=== PATIENT | female | born 1985 | race Caucasian/White ===

== ENCOUNTER 2024-08-02 14:22 | Emergency (ER) | payer OTHER, SELFPAY ==
[2024-08-02 14:25] VITALS: BP 147/102
[2024-08-02 14:48] LABS: % Basophils 0.5 % (0-2); % Eosinophils 1.6 % (0-6); % Immature Granulocytes 0.4 % (0-0.5); % Lymphocytes 22.8 % (20.5-51.1); % Monocytes 6.6 % (1.7-9.3); % Neutrophils 68.1 % (42.2-75.2); Absolute Basophils 0.1 10^3/uL (0-0.2); Absolute Eosinophils 0.2 10^3/uL (0-0.7); Absolute Lymphocytes 2.6 10^3/uL (1.2-3.4); Absolute Monocytes 0.8 10^3/uL (0.1-0.6); Absolute Neutrophils 7.7 10^3/uL (1.4-6.5); Hematocrit 42.3 % (37.0-47.0); Hemoglobin 14.8 g/dL (12.0-16.0); Mean Corpuscular Volume 94.2 fL (81.0-99.0); Mean Platelet Volume 10.3 fL (7.4-10.4); Nucleated Red Blood Cells % 0 %; Platelet Count 301 10^3/uL (130-400); Red Blood Cell Count 4.49 10^6/uL (4.20-5.40); Red Cell Dist. Width 11.9 % (11.5-14.5); White Blood Cell Count 11.3 10^3/uL (4.8-10.8)
[2024-08-02 15:11] LABS: ALT (SGPT) 51 U/L (0-35); AST (SGOT) 28 U/L (14-36); Alkaline Phosphatase 67 U/L (38-126); Blood Urea Nitrogen 10 mg/dl (7-17); Carbon Dioxide 25 mmol/L (22-30); Chloride 108 mmol/L (98-107); Glucose 88 mg/dl (70-99); Magnesium 2.3 mg/dl (1.6-2.3); Potassium 4.1 mmol/L (3.5-5.1); Sodium 140 mmol/L (135-145); Total Bilirubin 0.8 mg/dl (0.2-1.3); Total Protein 7.9 g/dl (6.3-8.2); eGFR > 60.00
[2024-08-02 15:43] LABS: TSH Reflex To Free T4 0.43 uIU/ml (0.47-4.68)
[2024-08-02 16:12] LABS: Free T4 1.75 ng/dl (0.78-2.19)
--- NOTE | 2024-08-02 17:26 | ED.GENMED ---
History of Present Illness
General
Chief Complaint: Fatigue
Source: patient
Time Seen by Provider: 08/02/24 16:41
History of Present Illness
History of Present Illness:
38-year-old female presenting to the emergency department for evaluation after she states she feels as if her emotions have been very labile over the last couple of weeks, unsure if her thyroid is abnormal. She states that she has been under a lot
of stress recently, yesterday she quit her job and states that she has been hearing voices which she states are telling her negative things about herself. Patient states that she is a single mother, caring for her son, no SI or HI. Patient has a
history of substance abuse in the past but notes she has been sober from any hard drugs for the last 7 years but still notes she smokes marijuana, recently started using a vape pen and is unsure as to if this is may be related. Denies any fevers or
infectious symptoms. Family history was noted for schizophrenia and grandmother and an aunt.
Past History
Past History
ED Past Medical History: Asthma, Hypothyroidism, Psychiatric (ADHD) and Other (Insomnia, on Clonazapam q hs)
ED Past Surgical History: Gynecological (D&C)
Social History
Tobacco: Former smoker
Alcohol: Occasional
Drug: Former user and Marijuana
Personal: Single
Living: with family
Employment: Employed
Family History
Family History: Hypertension
Review of Systems
Review of Systems
All Other Systems: ROS reviewed and negative except as documented in HPI and ROS
Phy Exam
Physical Exam
Physical Exam:
GENERAL: Alert , in no apparent distress, tearful
EYE: conjunctiva clear
Head: Normocephalic atraumatic
NECK: Supple,
ENT: mmm.
LUNGS: no acute respiratory distress
NEUROLOGICAL: Alert and oriented
SKIN: Warm and dry, skin intact.
MUSCULOSKELETAL: well perfused.
PSYCH: Normal and appropriate interaction.
Scores
Heart Failure Risk
Heart Failure Risk Score: Not Applicable
Heart Score for Chest Pain Patients
STEMI patient?: Not applicable
Withdrawal Assessment of Alcohol
Withdrawal Assessment Completed?: Not applicable
Course
Orders/Labs/Results
Orders:
Orders
08/02/24 14:39
Complete Blood Count/With Diff Urgent
Comprehensive Metabolic Panel Urgent
Free T4 Urgent
Magnesium Urgent
TSH Reflex To Free T4 Urgent
08/02/24 17:04
Crisis Consult Urgent
Reason for Consult: outpatient resources
Abnormal Lab Results
08/02/24
14:39
WBC 11.3 H 10^3/uL
(4.8-10.8)
MCH 33.0 H pg
(27.0-31.0)
Absolute Neuts (auto) 7.7 H 10^3/uL
(1.4-6.5)
Absolute Monos (auto) 0.8 H 10^3/uL
(0.1-0.6)
Chloride 108 H mmol/L
(98-107)
ALT 51 H U/L
(0-35)
TSH (Reflex) 0.43 L uIU/ml
(0.47-4.68)
08/02/24 14:39
08/02/24 14:39
Vital Signs
Initial and Last Documented VS:
Initial Vital Signs
Temp Pulse Resp BP Pulse Ox
98.0 F 86 20 147/102 99
08/02/24 14:25 08/02/24 14:25 08/02/24 14:08/02/24 14:08/02/24 14:25
Last Documented Vital Signs
Temp Pulse Resp BP Pulse Ox
98.0 F 86 20 139/67 99
08/02/24 14:08/02/24 14:08/02/24 14:08/02/24 18:00 08/02/24 14:25
MDM/Problems Addressed
Differential Diagnosis Includes:
Hypo versus hyperthyroidism, anxiety, depression, substance use
MDM/Problems Addressed:
38-year-old female presented to the ER for evaluation of increased stressors, no SI or HI but states she feels that she might be hearing voices telling her negative things about herself. Patient states she does not want to go inpatient anywhere but
is amenable to outpatient based resources. Labs are reassuring, nonspecific slight leukocytosis. Thyroid testing relatively unremarkable. Crisis team notified and will come talk to the patient.
*Pulse Oximetry
Patient hypoxic: no
*Critical Care Note
Total Time (30-74mins, 75-104mins- exclusive of procedures): Not Applicable
Patient Management
Escalation/DeEscalation of care consider admission/obs:
Patient seen by crisis, agrees with outpatient workup and patient was provided with outpatient information. Aware of return precautions the ER. Stable for discharge
ED Attending Note
-
Portions of this chart may have been created with voice recognition software.� Occasional wrong word or��sound alike� substitutions may have occurred due to the inherent limitations of voice recognition software.
Discharge Plan
Departure
Patient Disposition: Home (Routine Discharge)
Date of Disposition: 08/02/24
Time of Disposition: 18:05
Patient with high blood pressure during this ER visit?: No
Discharge Problem:
Adjustment disorder with disturbance of emotion
Prescriptions:
No Action
clonazepam 1 MG tablet
1 mg PO Q6HPRN PRN (Reason: anxiety)
albuterol sulfate [Ventolin HFA] 90 MCG/PUFF HFA aerosol inhaler
1 puff inhalation DAILY
ibuprofen 600 MG tablet
600 mg PO Q6H PRN (Reason: pain)
dextroamphetamine-amphetamine 10 MG tablet
10 mg PO BID
metaxalone [Skelaxin] 800 MG tablet
800 mg PO TIDPRN PRN (Reason: pain/neck spasm) Qty: 10 0RF
oxycodone-acetaminophen 5 MG/325 MG tablet
1 tab PO Q4HPRN PRN (Reason: pain) Qty: 9 0RF
metronidazole 500 MG tablet
500 mg PO TID Qty: 21 0RF
levofloxacin 500 MG tablet
500 mg PO DAILY Qty: 7 0RF
Referrals:
Melanie Penny CRNP [Family Provider, Family Practice]
Interventions
Interventions:
*Risk Screen - Suicide Last Done: 08/02/24 16:00
*General Assessment Last Done: 08/02/24 14:25
*Neglect/Abuse Screening Last Done: 08/02/24 16:00
*ED- Fall Risk Assessment Last Done: 08/02/24 16:00
*Nursing Disposition Last Done: 08/02/24 18:14
Discharge Date and Time
Discharge Date/Time: 08/02/24 18:13
Print Language: CAPE [place]
[2024-08-02 18:00] VITALS: BP 139/67
== END 2024-08-02 18:13 | disposition home or self-care (01) ==
LOC: EMR 14:22
PROVIDERS: Emergency Medicine; EMERGENCY PHYSICIAN Emergency Medicine; FAMILY PHYSICIAN Registered Nurse
DX: F43.20 Adjustment disorder, unspecified (principal); R44.0 Auditory hallucinations; Z73.3 Stress, not elsewhere classified; F12.90 Cannabis use, unspecified, uncomplicated; F90.9 Attention-deficit hyperactivity disorder, unspecified type; E03.9 Hypothyroidism, unspecified; J45.909 Unspecified asthma, uncomplicated; G47.00 Insomnia, unspecified; F19.11 Other psychoactive substance abuse, in remission; Z87.891 Personal history of nicotine dependence; Z79.899 Other long term (current) drug therapy; Z88.0 Allergy status to penicillin; Z91.040 Latex allergy status
CPT/HCPCS: 99283; 80053; 83735; 84439; 84443; 85025